=== PATIENT | male | born 1945 | race Caucasian/White ===

== ENCOUNTER → 2018-06-15 | Outpatient (CLI) | payer OTHER ==
[~2018-06-15] MED LIST: CARDIZEM CD240 MG PO; COUMADIN 5 MG TA5 M1 PO; HYTRIN 5 M5 MG/1 CAP PO; METFORMIN HCL500 MG PO; QUINU10 PD PO; ZOCOR20 MG PO
[2018-06-15 10:29] LABS: CALCIUM 9.6 mg/dL (8.5-10.1); CREATININE 1.6 mg/dL (0.7-1.3); POTASSIUM 4.8 mmol/L (3.5-5.1)
== END ==
LOC: CAT 09:48
PROVIDERS: Internal Medicine Cardiovascular Disease
DX: Z01.812 Encounter for preprocedural laboratory examination (principal); I71.4 Abdominal aortic aneurysm, without rupture; I74.3 Embolism and thrombosis of arteries of the lower extremities; E27.9 Disorder of adrenal gland, unspecified; M47.816 Spondylosis without myelopathy or radiculopathy, lumbar region

== ENCOUNTER → 2018-09-08 | Outpatient (CLI) | payer OTHER ==
[~2018-09-08] MED LIST changes: +ASPIR 8181 MG PO; +ATENOLOL 50MG T50 M1 PO; +AVAPRO300 MG PO; +CARTIA XT240 M1 PO; +CENTRUM SILVER1 EAC2 PO; +TERAZOSIN HCL5 MG PO; +VITAMIN B-121000 MCG PO; +VITAMIN D-32000 UNIT PO; +XARELTO20 MG PO
[2018-09-08 08:59] LABS: CREATININE 1.6 mg/dL (0.7-1.3)
== END ==
LOC: CAT 08:27
PROVIDERS: Nuclear Medicine Nuclear Cardiology
DX: Z01.812 Encounter for preprocedural laboratory examination (principal); I71.4 Abdominal aortic aneurysm, without rupture; Z95.828 Presence of other vascular implants and grafts; Z95.0 Presence of cardiac pacemaker

== ENCOUNTER → 2019-11-15 | Outpatient (CLI) | payer OTHER | LOC: SJCVCIMAG 09:14 | DX: Z45.018 Encounter for adjustment and management of other part of cardiac pacemaker (principal); I71.4 Abdominal aortic aneurysm, without rupture; R94.31 Abnormal electrocardiogram [ECG] [EKG]; I25.10 Atherosclerotic heart disease of native coronary artery without angina pectoris; I49.5 Sick sinus syndrome; I48.21 Permanent atrial fibrillation; I42.2 Other hypertrophic cardiomyopathy; I10 Essential (primary) hypertension; R53.83 Other fatigue; E11.9 Type 2 diabetes mellitus without complications; D68.59 Other primary thrombophilia; E78.00 Pure hypercholesterolemia, unspecified; E78.5 Hyperlipidemia, unspecified; Z79.82 Long term (current) use of aspirin; Z79.84 Long term (current) use of oral hypoglycemic drugs; Z79.899 Other long term (current) drug therapy; Z86.79 Personal history of other diseases of the circulatory system; Z87.891 Personal history of nicotine dependence; Z98.890 Other specified postprocedural states; Z79.01 Long term (current) use of anticoagulants ==

== ENCOUNTER → 2019-11-25 | Outpatient (CLI) | payer OTHER | LOC: SJCVCIMAG 08:18 | DX: I08.1 Rheumatic disorders of both mitral and tricuspid valves (principal); I25.10 Atherosclerotic heart disease of native coronary artery without angina pectoris; I48.91 Unspecified atrial fibrillation; I49.3 Ventricular premature depolarization; I42.9 Cardiomyopathy, unspecified; Z95.0 Presence of cardiac pacemaker ==

== ENCOUNTER → 2019-12-13 | Outpatient (CLI) | payer OTHER ==
[~2019-12-13] VITALS: Ht 177.8 cm; Wt 116.6 kg
[~2019-12-13] MED LIST changes: +ASA81BEC PO; +BYSTOLIC20 MG PO; +CHOLECALCIFEROL1 GM; +DILTIAZEM ER180 M2 PO; +EDARBI40 MG PO; +METFORMIN HCL500 M3 PO; +SIMVASTATIN80 MG PO; +SPIRONOLACTONE25 M1 PO; +VITAMIN B-1250 MC2 PO
[2019-12-13 07:30] VITALS: BP 124/75
[2019-12-13 07:39] LABS: HEMATOCRIT 35.9 % (42.0-52.0); HEMOGLOBIN 12.5 gm/dL (14.0-18.0); MCH 34.9 pg (26.0-34.0); MCHC 34.7 g/dL (28.0-37.0); MCV 100.6 fL (80.0-100.0); RBC 3.57 mil/uL (4.50-6.00); RDW 14.2 % (10.5-14.5); WBC 7.8 thou/uL (4.0-11.0)
[2019-12-13 07:48] LABS: CALCIUM 8.9 mg/dL (8.5-10.1); CREATININE 1.8 mg/dL (0.7-1.3); POTASSIUM 4.9 mmol/L (3.5-5.1)
--- NOTE | 2019-12-13 08:29 | NUR ---
SPIRITUAL CARE- A PRE-PROCEDURE VISIT WAS COMPLETED WITH THE PATIETN AND HIS BROTHER BY THIS WIND TURBINE MACHINIST.
--- NOTE | 2019-12-13 08:33 | EKG ---
[facility] [place] [address] ELECTROCARDIOGRAM REPORT Name: ARON NEGRON Room #: REG CLI M.R.#: [id number] Admission: 12/13/19 Attend Phys: Eldon St MD, Discharge: Date of : 43 Report #: [id number] THIS REPORT FOR: cc: Dave Grossman MD, William MD Lundgren,Harshal Almaraz MD [facility] ~ THIS REPORT FOR: //name// [facility] Test Date: 2019-12-13 Test Time: 07:29:01 Pat Name: ARON NEGRON Department: Room: Gender: Facilities Maintenance Technician: Darryn SHEN : 1945 Requested By: Eldon St Order Number: [id number] MD: Harshal Giordano Measurements Intervals [place] Rate: 63 P: [place]: QRS: 14 QRSD: 98 T: 266 QT: 426 QTc: 437 Interpretive Statements Atrial fibrillation Repol abnrm suggests ischemia, anterolateral Compared to ECG 08/07/2018 10:18:00 Ventricular-paced complex(es) or rhythm no longer present Electronically Signed On 12-13-2019 8:31:33 CDT by Harshal Giordano [email or web address] <ELECTRONICALLY SIGNED> By: Harshal Giordano MD, [facility] 12/13/19 0831 0729 0729 Harshal Giordano MD, [facility] /EPI
--- NOTE | 2019-12-14 18:10 | CATHLAB ---
[facility] [place] [address] INVASIVE PROCEDURE REPORT Name: ARON NEGRON Room #: REG [facility] MCeleste.#: [id number] Admission: 12/13/19 Attend Phys: Eldon St MD, Discharge: Date of : 43 Report #: [id number] THIS REPORT FOR: cc: Dave Grossman MD, William MD Mancuso, Gerald M. MD [facility] ~ APPROVED REPORT Study performed: 12/13/2019 11:56:05 Patient Details The patient is a 74 year-old male Event Personnel [address]on [facility] Continuous Absorption Process Operator,, Castro Sam RN, Ranulfo Sanchez RN RN, Zara Betancourt RT Abraham Alicea Monitor Procedures Performed Art Access - R femoral artery* Gilbert Access - R femoral vein Right and Left Heart Cath w/or w/o Coronarie [id number] [facility] Hemostasis w/ Mynx 42853 Initial Mod Sed Same Phys/QHP Gr5y [id number] 12692 Mod Sed Same Phys/QHP Ea 095617 Aortogram Abdominal Peripheral Angio [id number] Indication Chest pain Procedure Narrative The Right Groin^ was infiltrated with 1% Lidocaine subcutaneous anesthesia. A PINNACLE 6FR Sheath #[id number] sheath was inserted into the RFA 6F^. Coronary angiography was performed using coronary diagnostic catheters. The right coronary system was accessed and visualized with a JR 4 catheter. The left coronary system was accessed and visualized with a STR PIG catheter. The left ventricle was accessed and visualized with a STR PIG catheter. Left ventriculogram was performed in 30 degree projection. There was no hematoma. Intraoperative Conscious Sedation Sedation start time: 1241 Case end Time: 1330 Fluoro Time: 7.59 minutes Dose: DAP 9974.30 cGycm2 857 mGy Contrast Type and Amount: Visipaque 90 ml [facility] [place] [address] INVASIVE PROCEDURE REPORT Name: ARON NEGRON Room #: [id number] Admission: 12/13/19 Attend Phys: Eldon St, Discharge: Date of : 43 Report #: [id number] Hemodynamics The right atrial mean pressure is 15 mmHg. The right ventricular pressure is 46/6 mmHg. The pulmonary artery pressure is 48/20 mmHg with a mean of 33 mmHg. The mean pulmonary capillary wedge pressure is 15 mmHg. The aortic pressure is 133/87 mmHg with a mean of 102 mmHg. The left ventricular pressure is 160/11 mmHg with a mean of mmHg. The left ventricular end diastolic pressure is 25 mmHg. The cardiac output using thermo method is 4.95 L/min. The cardiac index using thermo method is 2.13 L/min/m2. Conclusion 1. Successful right heart catheterization see above hemodynamics cardiac output by thermodilution. #2 left ventricle is hyperdynamic LV function. EF 65%. Subtle gradient on pullback apical hypertrophy is noted. #3 abdominal aortogram reveals an intact aortic stent graft. Placed below the renal arteries. No obvious endoleak or flow into the aneurysmal sac. Brisk flow through the iliac conduit. #4 left main mildly disease giving rise to LAD and circumflex. #5 LAD mildly calcified diffusely diseased extends around the apex there is also a large diagonal branch well preserved #6 there is a small ramus intermedius that has an eccentric 70% ostial lesion just off the left main would treat this medically. #7 circumflex OM mildly diseased there is a small second OM branch which is subtotally occluded this is a 1.5 mm vessel would treat this medically. The large proximal OM is widely patent. 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 3040% proximal and 50% mid distal long lesion no indication for intervention. Recommendations and plan continue aggressive risk factor modification. No indication for coronary intervention. Mild gradient noted history of mild hypertrophic cardiomyopathy. Apical hypertrophy is noted. <ELECTRONICALLY SIGNED> By: Eldon St MD, FACC 12/14/191807 [address] MD, FACC /INF
== END | disposition home or self-care (01) ==
LOC: CATH 06:53
PROVIDERS: Internal Medicine Cardiovascular Disease
DX: R07.9 Chest pain, unspecified (principal); I25.10 Atherosclerotic heart disease of native coronary artery without angina pectoris; I10 Essential (primary) hypertension; E11.9 Type 2 diabetes mellitus without complications; I48.91 Unspecified atrial fibrillation; E78.5 Hyperlipidemia, unspecified; Z98.890 Other specified postprocedural states; Z90.49 Acquired absence of other specified parts of digestive tract; Z98.41 Cataract extraction status, right eye; Z98.42 Cataract extraction status, left eye; Z79.899 Other long term (current) drug therapy; Z95.0 Presence of cardiac pacemaker; Z79.01 Long term (current) use of anticoagulants; Z79.82 Long term (current) use of aspirin

== ENCOUNTER → 2020-10-12 | Outpatient (CLI) | payer OTHER | LOC: SJCVCIMAG 09:36 | PROVIDERS: ATTEND Internal Medicine Cardiovascular Disease | DX: R94.31 Abnormal electrocardiogram [ECG] [EKG] (principal); I08.8 Other rheumatic multiple valve diseases; I11.9 Hypertensive heart disease without heart failure; I48.21 Permanent atrial fibrillation; I25.10 Atherosclerotic heart disease of native coronary artery without angina pectoris; E78.00 Pure hypercholesterolemia, unspecified; I49.5 Sick sinus syndrome; I65.23 Occlusion and stenosis of bilateral carotid arteries; I71.4 Abdominal aortic aneurysm, without rupture; D68.59 Other primary thrombophilia; R06.02 Shortness of breath; E11.9 Type 2 diabetes mellitus without complications; I25.5 Ischemic cardiomyopathy; Z86.2 Personal history of diseases of the blood and blood-forming organs and certain disorders involving the immune mechanism; Z79.82 Long term (current) use of aspirin; Z79.899 Other long term (current) drug therapy; Z87.891 Personal history of nicotine dependence; Z72.89 Other problems related to lifestyle ==

== ENCOUNTER → 2020-10-26 | Outpatient (CLI) | payer OTHER | LOC: SJCVCIMAG 10:42 | PROVIDERS: ATTEND Internal Medicine Cardiovascular Disease | DX: I10 Essential (primary) hypertension (principal); N28.89 Other specified disorders of kidney and ureter; Z98.890 Other specified postprocedural states; Z79.899 Other long term (current) drug therapy; Z86.79 Personal history of other diseases of the circulatory system; Z87.891 Personal history of nicotine dependence ==

== ENCOUNTER → 2021-04-23 | Outpatient (CLI) | payer OTHER | LOC: SJCVCIMAG 08:40 | PROVIDERS: ATTEND Internal Medicine Cardiovascular Disease | DX: I71.4 Abdominal aortic aneurysm, without rupture (principal); I25.10 Atherosclerotic heart disease of native coronary artery without angina pectoris; I10 Essential (primary) hypertension; I49.5 Sick sinus syndrome; I65.23 Occlusion and stenosis of bilateral carotid arteries; E78.00 Pure hypercholesterolemia, unspecified; D68.59 Other primary thrombophilia; Z86.2 Personal history of diseases of the blood and blood-forming organs and certain disorders involving the immune mechanism; E11.9 Type 2 diabetes mellitus without complications; E78.5 Hyperlipidemia, unspecified; I48.21 Permanent atrial fibrillation; Z79.82 Long term (current) use of aspirin; Z79.899 Other long term (current) drug therapy; Z87.891 Personal history of nicotine dependence; Z72.89 Other problems related to lifestyle ==

== ENCOUNTER → 2021-05-24 | Outpatient (CLI) | payer OTHER ==
[2021-05-24 11:03] LABS: CALCIUM 9.2 mg/dL (8.5-10.1); CREATININE 1.8 mg/dL (0.7-1.3); POTASSIUM 4.5 mmol/L (3.5-5.1)
== END ==
LOC: CAT 09:15
PROVIDERS: ATTEND Internal Medicine Cardiovascular Disease
DX: T82.310A Breakdown (mechanical) of aortic (bifurcation) graft (replacement), initial encounter (principal); Z98.890 Other specified postprocedural states; Z86.79 Personal history of other diseases of the circulatory system; Z01.812 Encounter for preprocedural laboratory examination; I71.4 Abdominal aortic aneurysm, without rupture; K57.30 Diverticulosis of large intestine without perforation or abscess without bleeding; X58.XXXA Exposure to other specified factors, initial encounter; Y92.89 Other specified places as the place of occurrence of the external cause; Y93.89 Activity, other specified; Y99.8 Other external cause status